=== PATIENT | female | born 1955 | race Caucasian/White ===

== ENCOUNTER → 2018-05-04 | Outpatient (CLI) | payer MEDICARE ==
[2018-05-04 15:48] LABS: HCT 41.4 % (34.0-46.0); HGB 13.1 gm/dL (11.4-16.0); MCH 29.8 pg (25.0-35.0); MCHC 31.6 g/dL (31.0-37.0); MCV 94.3 fL (80.0-100.0); Mean Platelet Volume 6.4; Platelet Count 325 k/uL (150-450); RBC 4.39 m/uL (3.80-5.40); RDW 13.6 % (11.5-15.5); WBC 7.2 k/uL (3.8-10.6)
[2018-05-04 15:56] LABS: Potassium 4.6 mmol/L (3.5-5.1)
== END | disposition home or self-care (01) ==
LOC: LABPAT 14:46
PROVIDERS: ATTEND Internal Medicine Interventional Cardiology
DX: Z01.812 Encounter for preprocedural laboratory examination (principal); I63.9 Cerebral infarction, unspecified
CPT/HCPCS: 36415; 80051; 82565; 82947; 84520; 85027

== ENCOUNTER 2018-05-06 07:45 | Day surgery (SDC) | payer MEDICARE ==
[2018-05-04 17:15] VITALS: BMI 29.7
[~2018-05-06 07:45] MED LIST: SODIUM CHLORIDE 0.9% 1,000 ML IV SCH; ceFAZolin IN SWFI 2 GM/20 ML SYRINGE IVP ONE
[2018-05-06 08:34] VITALS: TEMP 98.3
[2018-05-06] MEDS ORDERED: SODIUM CHLORIDE 0.9% 500 ML 500 ML IV ONE (08:34)
[2018-05-06 08:37] LABS: Glucose,Whole Blood 128 mg/dL (75-99)
[2018-05-06] MEDS ORDERED: MIDAZOLAM 2 MG/2 ML VIAL IV ONE (09:17)
[2018-05-06] MEDS ORDERED: LIDOCAINE 1% INJ 10MG/ML (20 ML MDV) SQ ONE (09:19)
--- NOTE | 2018-05-06 09:56 | PCN ---
PROCEDURE NOTE PROCEDURE: Loop recorder insertion. PERFORMED BY: Dr. Drea Salas. Moderate conscious sedation time was 10 minutes. CLINICAL INFORMATION: Mrs. Reddy is a 62-year-old lady with a cryptogenic stroke. She had what seems to be an embolic stroke with decent recovery. A 30-day event monitor did not reveal any evidence of atrial fibrillation. However, she has been advised to have a transesophageal echo and a loop recorder and was brought in for the procedure electively after due discussion regarding risks, benefits, and options. PROCEDURE NOTE: Under local anesthesia and strict aseptic precautions, a stab incision was made with the tool provided in the left fourth intercostal space in a lateral orientation. The loop recorder was inserted with the tool provided. A single suture was used to secure the stab incision. The signal was good. The patient's loop recorder has been set with a cryptogenic stroke settings. The signal was 0.23 mV. Loop recorder information, this is a [employer] LINQ serial #[id number]. The patient tolerated procedure well without complications. An antibiotic was given at the time of stab incision. The R-waves were 0.23 mV. MMODL / IJN: [id number] /
[2018-05-06 10:33] VITALS: RESP 16
[2018-05-06] MEDS ORDERED: fentaNYL (PF) 50 MCG/ML 2 ML AMP ONE (11:05)
[2018-05-06] MEDS ORDERED: IV FLUID CONTINUATION 400 ML IV ONE (11:28)
[2018-05-06] MEDS: BENZOCAINE SPRAY 1 CAN MUCOUS MEM ONE ×2 (11:28→11:46)
[2018-05-06] MEDS ORDERED: MIDAZOLAM 2 MG/2 ML VIAL IVP ONE ×2 (11:46→11:49)
[2018-05-06] MEDS ORDERED: fentaNYL (PF) 50 MCG/ML 2 ML AMP IV ONE (11:46)
--- NOTE | 2018-05-06 12:29 | ECHOT ---
TRANSESOPHAGEAL ECHOCARDIOGRAM TRANSESOPHAGEAL ECHOCARDIOGRAM: Mrs. Reddy is a 62-year-old female who was advised to have a transesophageal echocardiogram to rule out cardiac source of emboli. Patient had evidence of cryptogenic stroke. The patient was given intravenous sedation with Versed and fentanyl and transesophageal echocardiogram was performed without any complications. Left ventricular chamber is normal in size with normal left ventricular systolic function. Mild thickening of the mitral leaflets noted. There is no definite evidence of any vegetations on mitral aortic or tricuspid valve. Mild mitral regurgitation is noted. Minimal tricuspid regurgitation is noted and trace aortic regurgitation is noted. Left atrium is mildly enlarged. There is no evidence of thrombus in left atrial appendage. Interatrial septum is intact. There is no evidence of any PFO by saline contrast study. The subcostal views were suboptimal. FINAL IMPRESSION: 1. There is no evidence of thrombus in left atrium or atrial appendage. 2. Left ventricular systolic function is normal. 3. There is a mild thickening of the mitral and aortic valve with mild degree of mitral and trace degree of aortic regurgitation. 4. Intraatrial septum is intact. There is no evidence of any patent foramen ovale by saline contrast study. MMODL / IJN: [id number] /
[2018-05-06 12:45] VITALS: PULSE 77
[2018-05-06 13:01] VITALS: BP 138/76
== END 2018-05-06 13:10 | disposition home or self-care (01) ==
LOC: CATHCVL 07:45
PROVIDERS: ATTEND Internal Medicine Cardiovascular Disease
DX: I63.9 Cerebral infarction, unspecified (principal); I08.3 Combined rheumatic disorders of mitral, aortic and tricuspid valves; I10 Essential (primary) hypertension; E11.9 Type 2 diabetes mellitus without complications; Z87.891 Personal history of nicotine dependence; J44.9 Chronic obstructive pulmonary disease, unspecified; Z79.84 Long term (current) use of oral hypoglycemic drugs; Z79.82 Long term (current) use of aspirin; Z79.899 Other long term (current) drug therapy
CPT/HCPCS: 93312; 93320; 93325; 33285; C1764; J2250; J2001; J3010; J0690

== ENCOUNTER → 2018-06-16 | Outpatient (CLI) | payer MEDICARE ==
[2018-06-16 12:34] LABS: HCT 38.6 % (34.0-46.0); HGB 12.4 gm/dL (11.4-16.0); MCH 29.1 pg (25.0-35.0); MCHC 32.2 g/dL (31.0-37.0); MCV 90.6 fL (80.0-100.0); Mean Platelet Volume 7.6; Platelet Count 267 k/uL (150-450); RBC 4.25 m/uL (3.80-5.40); RDW 13.9 % (11.5-15.5); WBC 6.3 k/uL (3.8-10.6)
[2018-06-16 12:52] LABS: Magnesium 1.6 mg/dL (1.6-2.3); Potassium 4.4 mmol/L (3.5-5.1)
== END | disposition home or self-care (01) ==
LOC: LABPAT 11:41
PROVIDERS: ATTEND Internal Medicine Interventional Cardiology
DX: Z01.812 Encounter for preprocedural laboratory examination (principal); I10 Essential (primary) hypertension; R06.02 Shortness of breath
CPT/HCPCS: 36415; 80051; 82565; 82947; 83735; 84520; 85027